=== PATIENT | female | born 1965 | race Caucasian/White ===

== ENCOUNTER 2018-07-30 19:54 | Emergency (ER) | payer SELFPAY ==
[2018-07-30 20:33] VITALS: BP 114/75; PULSE 79; RESP 18; TEMP 98.2; O2SAT 98
--- NOTE | 2018-07-30 21:20 | C.PDOC ---
History Of Present Illness 53 year old female presents with itchy rash over the torso, arms, and legs for the past 2 weeks. Denies SOB or itchy throat. Time Seen by Provider: 07/30/18 20:45 Chief Complaint (Nursing): Abnormal Skin Integrity History Per: Patient History/Exam Limitations: no limitations Onset/Duration Of Symptoms: Days (2 weeks) Quality Of Symptoms: Itching Recent travel outside of the [place]: No Past Medical History Reviewed: Historical Data, Nursing Documentation, Vital Signs Vital Signs: Last Vital Signs Temp 98.2 F 07/30/18 20:30 Pulse 79 07/30/18 20:30 Resp 18 07/30/18 20:30 BP 114/75 07/30/18 20:30 Pulse Ox 98 07/30/18 20:30 - Medical History PMH: Hypercholesterolemia Family History: States: Unknown Family Hx - Social History Hx Alcohol Use: No Hx Substance Use: No - Immunization History Hx Tetanus Toxoid Vaccination: No Hx Influenza Vaccination: No Hx Pneumococcal Vaccination: No Review Of Systems ENT: Negative for: Mouth Swelling, Throat Swelling Respiratory: Negative for: Shortness of Breath Skin: Positive for: Rash Physical Exam - Physical Exam Appears: Well, Non-toxic, No Acute Distress Skin: Warm, Rash (Macular oval appearing diffusely spread over torso and arms with scaly center. [place] patch to right thigh. No hives or bullae.) Head: Atraumatic, Normacephalic Oral Mucosa: Moist Neurological/Psych: Oriented x3, Normal Speech Gait: Steady ED Course And Treatment O2 Sat by Pulse Oximetry: 98 (Room air) Pulse Ox Interpretation: Normal Disposition Counseled Patient/Family Regarding: Diagnosis, Need For Followup, Rx Given - Disposition Disposition: HOME/ ROUTINE Disposition Time: 21:19 Condition: STABLE Additional Instructions: You can use calamine lotion if the the rash is itchy. 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 - Scribe Statement The provider has reviewed the documentation as recorded by the Scribe Hans Kumar All medical record entries made by the Scribe were at my direction and personally dictated by me. I have reviewed the chart and agree that the record accurately reflects my personal performance of the history, physical exam, medical decision making, and the department course for this patient. I have also personally directed, reviewed, and agree with the discharge instructions and disposition.
== END 2018-07-30 21:30 | disposition home or self-care (01) ==
LOC: C.ER 19:54
DX: L42 Pityriasis rosea (principal)